=== PATIENT | female | born 2000 | race Caucasian/White ===

== ENCOUNTER 2020-02-25 10:13 | Outpatient (CLI) | payer OTHER ==
--- NOTE | 2020-02-25 11:14 | MRI ---
MR the lumbar spine without contrast: 02/25/2020 History: Back pain with tingling COMPARISON: None. TECHNIQUE: Multiplanar multisequence MR images were obtained of lumbar spine without IV contrast FINDINGS: On the basis of 5 lumbar type vertebral bodies, conus medullaris terminates at theT12 level. Sagittal STIR imaging demonstrates no focal area of osseous marrow edema. T12-L1:Unremarkable L1-2:Unremarkable L2-3:Unremarkable L3-4:Unremarkable L4-5:Unremarkable L5-S1:Unremarkable Image retroperitoneal structures demonstrateno acute findings. Incidental note is made of small volum e free fluid in the pelvis. There is a oval T2 hyperintense lesion within the left hemipelvis measuring up to 3.0 cm suggesting a left ovarian cysts.. IMPRESSION: No significant central canal or neural foraminal stenosis.
--- NOTE | 2020-02-25 11:46 | RAD ---
EXAM: XR Lumbar Spine Comp W Bending PROVIDED CLINICAL HISTORY: Back pain and lower extremity tingling. COMPARISON: None FINDINGS: There are 6 nonrib-bearing lumbar-type vertebral bodies. The vertebral body heights and intervertebra l disc spaces are within normal limits. No fracture or subluxation is seen involving the lumbar spine. IMPRESSION: No acute findings involving the lumbar spine.
== END 2020-02-25 10:14 | disposition home or self-care (01) ==
LOC: SCSMRI 10:13
PROVIDERS: ATTEND Orthopaedic Surgery
DX: M54.5 Low back pain (principal)
CPT/HCPCS: 72100; 72148